=== PATIENT | female | born 1980 | race African-American/Black ===

== ENCOUNTER 2024-08-09 11:25 | Emergency (ER) | payer MEDICAID ==
[~2024-08-09] VITALS: Ht 167.6 cm; Wt 60.0 kg
[~2024-08-09 11:25] MED LIST: DOCU-138 PO; FERR-43 PO
[2024-08-09 11:48] VITALS: BP 126/87; O2SAT 99
[2024-08-09] MEDS ORDERED: TOPUD MT (13:33)
[2024-08-09 14:32] VITALS: PULSE 72; RESP 18; TEMP 36.94740; O2SAT 99
== END 2024-08-09 14:32 | disposition home or self-care (01) ==
LOC: ER 11:25
DX: M25.562 Pain in left knee (principal); Z90.710 Acquired absence of both cervix and uterus
CPT/HCPCS: 73560; 81025; 99283